=== PATIENT | female | born 1940 | race Caucasian/White ===

== ENCOUNTER 2016-09-29 12:16 | Day surgery (SDC) | payer MEDICARE ==
[2016-09-24 17:20] LABS: HEMATOCRIT 42.7 % (36.0-48.0); HEMOGLOBIN 13.6 g/dL (12.0-16.0)
[2016-09-24 17:33] LABS: CALCIUM, SERUM 10.6 MG/DL (8.5-10.4); CHLORIDE, SERUM 106 MMOL/L (96-112); CO2 (CARBON DIOXIDE) 30 MMOL/L (24-34); CREATININE 0.63 MG/DL (0.55-1.02); GFR AFRICAN AMERICAN 100 ML/MIN (>=60); GFR NON AFRICAN AMERICAN 87 ML/MIN (>=60); SODIUM, SERUM 141 MMOL/L (135-148)
[2016-09-24 17:34] LABS: BUN (BLOOD UREA NITROGEN) 22 MG/DL (6-23); GLUCOSE, SERUM 143 MG/DL (60-99)
[~2016-09-29 12:16] MED LIST: ACT300 PO; ALIGN4 MG PO; ASAEC PO; B COMPLEX-C OR; COQ-10200 MG OR; COREG12 PO; CYANO1000T PO; FISH-EPA1000 MG PO; FLEXI JOIN1 PO; FLONASE NAS; FOSAMAX70 MG PO; JUICE PLUS; K-TABS10 MEQ PO; L40 PO; LIPITOR20 PO; LOVAZA1 GM PO; MAGTAB SR84 MG PO; MAXAIR AUTOH200 MCG IN; MICARDIS H80 MG/25 M PO; MUCINEX DM1 TAB OR; NEUR600 PO; NIASPAN500 PO; OS500+D PO; PRAVACHOL40 MG PO; PROAIR HFA INH; SALINE NASAL SPRAY; SINGULAIR1 PO; TYLENOL ARTH650 MG PO; ULTRAM50 PO; VITAMIN C100 MG PO; WELCHOL625 MG OR; [UNRECOGNIZED DRUG - OTHER]; [UNRECOGNIZED DRUG - OTHER] EX
== END 2016-09-29 23:59 | disposition home or self-care (01) ==
LOC: IMGHOLD 12:16
PROVIDERS: Physician Assistant
DX: M51.36 Other intervertebral disc degeneration, lumbar region (principal)
CPT/HCPCS: 72148; 80048; 85014; 85018; 93005